=== PATIENT | female | born 1980 | race Caucasian/White ===

== ENCOUNTER → 2016-02-23 | Outpatient (CLI) | payer BC ==
--- NOTE | 2016-02-23 16:17 | Diagnostic Imaging Report ---
INDICATION: Fall with right great toe injury. EXAM: AP, oblique and lateral views of the right great toe are obtained. FINDINGS: No fracture or acute bony abnormality is seen. There is a small exostosis off the distal phalanx. IMPRESSION: No acute bony abnormality. Dictated by: Dictated on workstation # [id number]
== END ==
LOC: RAD 10:58
PROVIDERS: ATTEND Nurse Practitioner Family
DX: S90.931A Unspecified superficial injury of right great toe, initial encounter (principal); W19.XXXA Unspecified fall, initial encounter
CPT/HCPCS: 73660

== ENCOUNTER → 2017-10-27 | Outpatient (CLI) | payer OTHER ==
--- NOTE | 2017-10-27 13:08 | Diagnostic Imaging Report ---
Indication: Right hand pain AP, oblique and lateral views of the right hand are obtained. FINDINGS: No acute fracture or dislocation is identified. No abnormal lytic or sclerotic focus is seen, and there is no radiopaque foreign body. IMPRESSION: No acute abnormality. Dictated by: Dictated on workstation # [id number]
== END ==
LOC: RAD 12:23
PROVIDERS: ATTEND Nurse Practitioner Family
DX: M79.641 Pain in right hand (principal); R22.31 Localized swelling, mass and lump, right upper limb
CPT/HCPCS: 73130

== ENCOUNTER → 2017-11-13 | Outpatient (CLI) | payer OTHER ==
--- NOTE | 2017-11-13 14:17 | Diagnostic Imaging Report ---
PROCEDURE: MRI right upper extremity without contrast. TECHNIQUE: Multiplanar, multisequence non contrast-enhanced MRI of the upper extremity was accomplished. INDICATION: Palpable nodule on the right hand between the first and second digits, sensitive to the touch. COMPARISON: Radiographs from 10/27/2017. FINDINGS: Underlying the MRI marker, there is an area of heterogeneous T1-weighted hypointensity relative to the surrounding subcutaneous fat and isointensity to the muscle measuring approximately 11 x 7 mm on axial imaging (image 11 series 11). There are internal areas of serpiginous hypointensity. This appears to correspond with hyperintense signal on STIR imaging and isointense signal on T2 fat-sat, with small internal foci of hyperintensity. The borders are ill-defined with no capsule seen. No invasion of the underlying musculature or bone is seen. No contrast was administered to evaluate for enhancement. The imaged osseous structures of the right hand are unremarkable. No other masses are seen. IMPRESSION: 1. Ill-defined subcutaneous lesion corresponding with the palpable abnormality, with small T2-bright foci and serpiginous hypointensities. This may represent a hemangioma, or less likely atypical lipoma. No invasion of the underlying musculature or bone is seen. Dictated by: Dictated on workstation # [id number]
== END ==
LOC: RAD 12:50
PROVIDERS: ATTEND Nurse Practitioner Family
DX: L98.9 Disorder of the skin and subcutaneous tissue, unspecified (principal); M79.641 Pain in right hand; R22.31 Localized swelling, mass and lump, right upper limb
CPT/HCPCS: 73218

== ENCOUNTER → 2021-01-01 | Outpatient (CLI) | payer OTHER ==
--- NOTE | 2021-01-01 13:37 | Diagnostic Imaging Report ---
INDICATION: Routine screening. COMPARISON: No prior mammograms are available for comparison. This is a baseline study. TECHNIQUE: 2D and 3D bilateral screening mammography was performed with CAD. FINDINGS: Both breasts are heterogeneously dense, limiting the sensitivity of mammography. No mass or malignant-appearing microcalcifications are seen. The axillae are unremarkable. IMPRESSION: No mammographic features suspicious for malignancy are identified. ACR BI-RADS Category 1: Negative. Result letter will be mailed to the patient. Note: At least 10% of breast cancer is not imaged by mammography. Dictated by: Dictated on workstation # [id number]
== END ==
LOC: RAD 10:47
PROVIDERS: ATTEND Family Medicine
DX: Z12.31 Encounter for screening mammogram for malignant neoplasm of breast (principal)
CPT/HCPCS: 77063; 77067